=== PATIENT | male | born 1990 | race Two or more races ===

== ENCOUNTER 2021-05-08 11:14 | Emergency (ER) | payer OTHER ==
[2021-05-08 11:19] VITALS: BP 115/74; PULSE 74; TEMP 98.4; BMI 37.6
[2021-05-09 19:06] LABS: SARS-CoV-2 NAA Not Detected (Not Detected)
== END 2021-05-08 12:14 | disposition home or self-care (01) ==
LOC: JER 11:14
DX: Z11.52 Encounter for screening for COVID-19 (principal)
CPT/HCPCS: 99283-25; C9803; U0003; U0005